=== PATIENT | female | born 1930 | race Two or more races ===

== ENCOUNTER 2018-06-25 19:28 | Inpatient (IN) | payer MEDICARE, MEDICAID ==
[~2018-06-25] VITALS: Ht 157.5 cm; Wt 71.2 kg
[2018-06-25] MEDS ORDERED: [UNRECOGNIZED DRUG - REMARK] (19:38)
[2018-06-25] MEDS ORDERED: [UNRECOGNIZED DRUG - REMARK] (19:38)
--- NOTE | 2018-06-25 19:45 | NUR ---
Pt bib rescue for the c/o flu-like symptoms, cough/phlegm x 3 weeks. Upon assessment, pt is AAO x 3 and speaking in complete sentences. No s/s of respiratory distress noted at this time. Pt placed on monitor. Safe environment implemented.
[2018-06-25] MEDS ORDERED: DEXAMETHASONE SOD PHOSPHATE 4 MG INJ IV ONE (20:00)
[2018-06-25] MEDS ORDERED: IV NORMAL SALINE 1000 ML BAG IV ONE (20:00)
[2018-06-25] MEDS ORDERED: LEVOFLOXACIN 500 MG/D5W 100ML PIGGYBACK IV ONE (20:00)
[2018-06-25] MEDS ORDERED: DEXAMETHASONE SOD PHOSPHATE 10 MG INJ ONE (20:35)
[2018-06-25] MEDS ORDERED: LEVOFLOXACIN 500 MG/D5W 100 ML ONE (20:35)
[2018-06-25 20:41] LABS: BASOPHILS % (AUTO) 0.3 % (0.0-2.0); EOSINOPHILS % (AUTO) 0.3 % (0.0-7.0); HEMATOCRIT 31.4 % (31.2-41.9); HEMOGLOBIN 10.4 g/dL (10.9-14.3); LYMPHOCYTES # (AUTO) 1.4 K/uL (20.0-40.0); LYMPHOCYTES % (AUTO) 23.6 % (20.5-51.5); MEAN CORPUSCULAR HGB CONC 33 g/dL (32.3-35.6); MEAN CORPUSCULAR VOLUME 90.3 fL (75.5-95.3); MONOCYTES # (AUTO) 1.7 K/uL (2.0-10.0); MONOCYTES % (AUTO) 28.2 % (0.0-11.0); NEUTROPHILS # (AUTO) 2.8 K/uL (1.8-8.9); NEUTROPHILS % (AUTO) 47.6 % (38.5-71.5); PLATELET COUNT (AUTO) 108 K/uL (179-408); RED BLOOD CELL COUNT(AUTO) 3.47 MIL/uL (3.63-4.92); WHITE BLOOD COUNT (AUTO) 5.9 K/uL (3.8-11.8)
[2018-06-25 20:46] LABS: CARBON DIOXIDE 28 mmol/L (21-32); CHLORIDE 105 mmol/L (98-107); CREATININE 1.1 mg/dL (0.6-1.3); GLUCOSE 112 mg/dL (74-106); POTASSIUM 4.8 mmol/L (3.5-5.1); UREA NITROGEN, BLOOD 24 mg/dL (7-18)
[2018-06-25] MEDS ORDERED: DOCUSATE SODIUM 100 MG (20:47)
[2018-06-25] MEDS ORDERED: LEVOTHYROXINE 100 MCG (20:47)
[2018-06-25] MEDS ORDERED: FERROUS SULFATE 325 MG (20:47)
[2018-06-25] MEDS ORDERED: FUROSEMIDE TAB 20MG (20:47)
[2018-06-25] MEDS ORDERED: ALPRAZOLAM TAB 0.5MG (20:47)
[2018-06-25] MEDS ORDERED: LINZESS CAP 145MCG (20:47)
[2018-06-25] MEDS ORDERED: BISACODYL 5 MG (20:47)
[2018-06-25] MEDS ORDERED: FLUOCINOLONE (20:47)
[2018-06-25] MEDS ORDERED: FLUOCINOLONE ACETONIDE 0.01% (20:47)
[2018-06-25] MEDS ORDERED: LORATADINE 10 MG (20:47)
[2018-06-25 20:54] LABS: *BILIRUBIN,URIN NEGATIVE (NEGATIVE); *BLOOD, URINE 1+ (NEGATIVE); *COLOR,URINE YELLOW (YELLOW); *KETONES,URINE NEGATIVE (NEGATIVE); *UROBILINOGEN,URINE 0.2 E.U./dl (NORMAL); LEUKOCYTE ESTERASE ,URINE 2+ (NEGATIVE); NITRITE, URINE POSITIVE (NEGATIVE); UGLUCOSE NEGATIVE (NEGATIVE)
[2018-06-25 20:58] LABS: ALANINE AMINOTRANSFERASE 22 U/L (14-59); ALKALINE PHOSPHATASE 204 U/L (50-136); ASPARTATE AMINOTRANSFERASE 15 U/L (15-37); BILIRUBIN,DIRECT 0.2 mg/dL (0.0-0.2); BILIRUBIN,TOTAL 0.5 mg/dL (0.2-1.0); TOTAL PROTEIN, SERUM 6.4 g/dL (6.4-8.2)
[2018-06-25 21:01] LABS: *CLARITY,URINE CLOUDY (CLEAR)
[2018-06-25 21:02] LABS: WBC,URINE 50-80 /HPF (0-3)
[2018-06-25 21:03] LABS: BACTERIA,URINE MANY /HPF (NONE SEEN); MUCUS,URINE MANY /LPF (0-FEW); SQUAMOUS EPITHELIAL CELL,UR FEW /HPF (NONE SEEN)
--- NOTE | 2018-06-25 21:25 | NUR ---
EPIC paged for panel call.
[2018-06-25 21:29] LABS: BAND % (MANUAL) 6 % (0-10); EOSINOPHILS % (MANUAL) 1 % (0-8); LYMPHOCYTES % (MANUAL) 22 % (20-40); METAMYELOCYTES % 1 % (0-1); MONOCYTES % (MANUAL) 25 % (2-10); NEUTROPHILS % (MANUAL) 45 % (42-75)
--- NOTE | 2018-06-25 21:40 | NUR ---
Dr. Hernandez on phone with Troy VELASQUEZ
--- NOTE | 2018-06-25 21:56 | NUR ---
Report given to receiving inpatient nurse.
--- NOTE | 2018-06-25 22:20 | NUR ---
Received patient from ER via gurney. A/O x 4. Kazakh speaking. Patient is ambulatory with assistive device. Denies pain at the moment. Placed patient on O2 2L NC. Lung sounds diminished. In no acute distress. IVF infusing on the left FA. Admission protocol followed. Skin check done, intact. No open wounds. Belongings list done. FPC assessment done. Safety initiated. Call light within reach.
--- NOTE | 2018-06-25 22:25 | NUR ---
Pt. admitted to [facility] , under care of Troy SHACTOR HELPER Dx: UTI Belongs List completed
[2018-06-25] MEDS ORDERED: LABE200T5 PO (23:09)
[2018-06-25 23:10] VITALS: BP 138/56
[2018-06-26] MEDS ORDERED: ROSU5TAB PO
[2018-06-26] MEDS ORDERED: DEXL30CA3 PO
[2018-06-26] MEDS ORDERED: LINA72CA PO (00:02)
[2018-06-26] MEDS ORDERED: HYDROCODONE/APAP 5-325MG TABLET PO PRN (02:15)
[2018-06-26] MEDS ORDERED: ZOLPIDEM 5 MG TABLET PO PRN (02:15)
[2018-06-26] MEDS ORDERED: HOME MED MISCELLANEOUS XX SCH (02:15)
[2018-06-26] MEDS ORDERED: MAGNESIUM HYDROXIDE 30 ML LIQUID UDC PO PRN (02:15)
[2018-06-26] MEDS ORDERED: ONDANSETRON 4 MG/2 ML VIAL IV PRN (02:15)
[2018-06-26] MEDS ORDERED: Z GUARD REMEDY PASTE 57 GM TUBE TOP PRN (02:15)
[2018-06-26] MEDS: IV NS 1000 ML 1,000 ML IV PRN (03:36)
--- NOTE | 2018-06-26 05:31 | NUR ---
No changes t/o shift. Patient states that she sweats alot at home during bedtime. I had to change her gown twice. IVF infusing on the right FA. Patent and intact. Vital signs stable. No temperature. Ambulates to the restroom with a walker. Good urine output. Safety and comfort measures maintained t/o shift. All meds given as ordered. All needs met.
[2018-06-26 06:00] VITALS: BP 131/42
[2018-06-26] MEDS: PANTOPRAZOLE SODIUM 40 MG TABLET.DR PO SCH (06:00)
--- NOTE | 2018-06-26 07:15 | NUR ---
RECEIVED PATIENT ON BED ASLEEP, NO ACUTE DISTRESS NOTED. IV ACCESS ON LEFT FOREARM #20 INTACT AND PATENT IV NS @ 75 CC/HR INFUSING WELL. COMFORT MEASURES PROVIDED. WILL CONTINUE TO MONITOR CLOSELY.
[2018-06-26] MEDS: LABETALOL HCL 200 MG TABLET PO SCH ×3 (08:37→17:46)
[2018-06-26 11:17] VITALS: BP 124/61
[2018-06-26] MEDS: FERROUS SULFATE 325 MG TABEC PO SCH (15:22)
[2018-06-26 15:29] VITALS: BP 124/55
[2018-06-26] MEDS: BENZONATATE 100 MG CAPSULE PO SCH ×2 (16:30→21:16)
[2018-06-26] MEDS ORDERED: LINA145C PO (17:13)
[2018-06-26] MEDS ORDERED: LORA-588 PO (17:14)
[2018-06-26] MEDS ORDERED: LEVO100T10 PO (17:14)
[2018-06-26] MEDS ORDERED: FURO-152 PO (17:15)
[2018-06-26] MEDS ORDERED: FERR325T28 PO (17:16)
[2018-06-26] MEDS ORDERED: BISA5TAB10 PO (17:16)
[2018-06-26] MEDS ORDERED: DOCU100C36 PO (17:17)
[2018-06-26] MEDS ORDERED: ALPR0.5T8 PO (17:18)
--- NOTE | 2018-06-26 18:41 | NUR ---
PATIENT IN STBALE CONDITION THROUGHOUT SHIFT. ON O2 @ 2LPM VIA NC. NON PRODUCTIVE COUGH STILL PRESENT. IV ACCESS INTACT AND PATENT IVF INFUSING WELL. ALL NEEDS ATTENDED AND ANTICIPATED. WILL ENDORSE ACCORDINGLY
--- NOTE | 2018-06-26 20:00 | NUR ---
Received patient laying comfortably in bed reading a paper. A/O x 4. Sierra Leonean speaking. Patient is ambulatory with assistive device. Denies pain at the moment but reported cough. Patient on O2 2L NC. Lung sounds diminished. In no acute distress. IVF infusing on the left FA. Safety initiated. Call light within reach.
[2018-06-26] MEDS: ATORVASTATIN 10 MG TABLET PO SCH (20:01)
[2018-06-26 20:25] VITALS: BP 112/49
[2018-06-27] MEDS: BENZONATATE 100 MG CAPSULE PO SCH ×3 (05:28→22:08)
[2018-06-27] MEDS: IV NS 1000 ML 1,000 ML IV PRN (05:28)
--- NOTE | 2018-06-27 05:55 | NUR ---
No changes t/o shift. Patient sweats alot at home during bedtime. I had to change her gown twice. IVF infusing on the left FA. Patent and intact. Patient c/o cough, medication given, stated relief. On O2 2L NC. Vital signs stable. No temperature. Ambulates to the restroom with a walker. Good urine output. Safety and comfort measures maintained t/o shift. All meds given as ordered. All needs met.
[2018-06-27 06:11] VITALS: BP 134/51
[2018-06-27] MEDS: PANTOPRAZOLE SODIUM 40 MG TABLET.DR PO SCH (06:26)
[2018-06-27 07:15] LABS: BASOPHILS % (AUTO) 0.3 % (0.0-2.0); EOSINOPHILS % (AUTO) 0.4 % (0.0-7.0); HEMATOCRIT 30.2 % (31.2-41.9); HEMOGLOBIN 10.2 g/dL (10.9-14.3); LYMPHOCYTES # (AUTO) 1.9 K/uL (20.0-40.0); LYMPHOCYTES % (AUTO) 31.3 % (20.5-51.5); MEAN CORPUSCULAR HEMOGLOBIN 30.1 uug (24.7-32.8); MEAN CORPUSCULAR HGB CONC 34 g/dL (32.3-35.6); MEAN CORPUSCULAR VOLUME 89.3 fL (75.5-95.3); MONOCYTES # (AUTO) 1.1 K/uL (2.0-10.0); MONOCYTES % (AUTO) 17.6 % (0.0-11.0); NEUTROPHILS # (AUTO) 3.1 K/uL (1.8-8.9); NEUTROPHILS % (AUTO) 50.4 % (38.5-71.5); PLATELET COUNT (AUTO) 115 K/uL (179-408); RED BLOOD CELL COUNT(AUTO) 3.39 MIL/uL (3.63-4.92); WHITE BLOOD COUNT (AUTO) 6.1 K/uL (3.8-11.8)
[2018-06-27 07:21] LABS: CARBON DIOXIDE 28 mmol/L (21-32); CHLORIDE 109 mmol/L (98-107); CHOLESTEROL 131 mg/dL (<200); CREATININE 0.9 mg/dL (0.6-1.3); GLUCOSE 92 mg/dL (74-106); HDL CHOLESTEROL 57 mg/dL (40-60); MAGNESIUM 1.5 mg/dL (1.8-2.4); PHOSPHOROUS 2.5 mg/dL (2.5-4.9); POTASSIUM 3.9 mmol/L (3.5-5.1); TRIGLYCERIDES 62 MG/DL (30-150); UREA NITROGEN, BLOOD 20 mg/dL (7-18)
[2018-06-27] MEDS ORDERED: LEVOFLOXACIN 750MG/D5W 750 MG in PREMIXED 1 EACH IV SCH (09:00)
[2018-06-27] MEDS: FERROUS SULFATE 325 MG TABEC PO SCH (09:15)
[2018-06-27] MEDS: LABETALOL HCL 200 MG TABLET PO SCH ×3 (09:20→16:18)
[2018-06-27 11:56] VITALS: BP 111/47
[2018-06-27 12:07] LABS: BAND % (MANUAL) 4 % (0-10); EOSINOPHILS % (MANUAL) 1 % (0-8); LYMPHOCYTES % (MANUAL) 30 % (20-40); METAMYELOCYTES % 2 % (0-1); MONOCYTES % (MANUAL) 18 % (2-10); MYELOCYTES % 1 % (0-0); NEUTROPHILS % (MANUAL) 44 % (42-75)
[2018-06-27] MEDS: MAGNESIUM SULFATE/D5W 100 ML IV SCH ×2 (12:09→13:19)
[2018-06-27 15:35] VITALS: BP 120/36
--- NOTE | 2018-06-27 18:49 | NUR ---
PATIENT IS SITTING UP IN BED AWAKE ALERT AND ORIENTED. BED IS IN LOW LOCKED POSITION AND CALL LIGHT IN REACH. PATIENT HAS NS RUNNING AT 75ML/HR. PATIENT IS ON 2L OF OXYGEN VIA NASAL CANNULA. NO DISTRESS NOTED. WALKER AT BEDSIDE.
--- NOTE | 2018-06-27 20:00 | NUR ---
Received patient from ER via [employer]. A/O x 4. Chadian speaking. No acute distress noted. Patient is ambulatory with assistive device. Reports pain in the right lower back. Patient on O2 2L NC. In no acute distress. IVF infusing on the left FA. Safety initiated. Call light within reach.
--- NOTE | 2018-06-27 20:15 | NUR ---
Made MD aware about 810 pain in the right lower back. New orders in place. Tylenol given for pain relief. Will closely monitor.
[2018-06-27 20:19] VITALS: BP 145/56
[2018-06-27] MEDS: ACETAMINOPHEN 325 MG TABLET PO PRN (20:54)
[2018-06-27] MEDS: ATORVASTATIN 10 MG TABLET PO SCH (20:54)
[2018-06-28] MEDS: BENZONATATE 100 MG CAPSULE PO SCH ×3 (05:10→21:46)
[2018-06-28] MEDS: IV NS 1000 ML 1,000 ML IV PRN (05:11)
--- NOTE | 2018-06-28 05:35 | NUR ---
Patient slept intermittently t/o shift. Patient c/o pain in the lower right back. Tylenol given, stated relief. Order for U.S. of both kidney scheduled today. On O2 2L NC. IVF infusing on the right FA. Patent and intact. Vital signs stable. No temperature. Ambulates to the restroom with a walker. Good urine output. Made a small BM yesterday morning. C/O constipation. Offered prune juice. Gave MOM. Safety and comfort measures maintained t/o shift. All meds given as ordered. All needs met.
[2018-06-28 05:59] VITALS: BP 134/74
[2018-06-28] MEDS: PANTOPRAZOLE SODIUM 40 MG TABLET.DR PO SCH (06:06)
[2018-06-28 08:53] LABS: CARBON DIOXIDE 30 mmol/L (21-32); CHLORIDE 109 mmol/L (98-107); GLUCOSE 97 mg/dL (74-106); POTASSIUM 4.6 mmol/L (3.5-5.1); UREA NITROGEN, BLOOD 18 mg/dL (7-18)
[2018-06-28] MEDS: ACETAMINOPHEN 325 MG TABLET PO PRN ×2 (09:15→21:47)
[2018-06-28] MEDS: FERROUS SULFATE 325 MG TABEC PO SCH (09:15)
[2018-06-28] MEDS: LABETALOL HCL 200 MG TABLET PO SCH ×4 (09:17→21:46)
[2018-06-28 11:30] VITALS: BP 125/53
[2018-06-28] MEDS ORDERED: FUROSEMIDE 20 MG/2 ML VIAL IV ONE (12:45)
[2018-06-28 16:08] VITALS: BP 149/48
[2018-06-28] MEDS ORDERED: SWABABLE VALVE TRANSFER SET EA MC ONE (16:21)
[2018-06-28] MEDS ORDERED: NORMAL SALINE FLUSH 10 ML DISP.SYRIN ONE (16:21)
[2018-06-28] MEDS ORDERED: IOHEXOL 350 100 ML INFUS..BTL ONE (16:22)
[2018-06-28] MEDS ORDERED: IV NORMAL SALINE 250 ML IV ONE (16:22)
--- NOTE | 2018-06-28 17:00 | NUR ---
EVA DELEON ORDERED STAT CT OF THE CHEST FOR DISSECTION. PATIENT TRANSFERRED FOR PROCEDURE. PATIENT DENIES ANY CHEST PAIN. NO DISTRESS NOTED.
--- NOTE | 2018-06-28 17:20 | NUR ---
PATIENT IS BACK FROM PROCEDURE, DR BATES CONTACTED SON DANIEL TO INFORM ABOUT MOTHER'S CONDITION AND GATHER MORE HISTORY.
--- NOTE | 2018-06-28 17:54 | NUR ---
DR. BATES SPOKE TO PATIENT AND WILL CHANGE SOME MEDICATION ADMINISTRATION TIMES. HELD LABETOLOL 5PM DOSE.
--- NOTE | 2018-06-28 18:00 | NUR ---
PATIENT TRANSFERRED TO ICU.
--- NOTE | 2018-06-28 18:56 | NUR ---
PATIENT TRANSFERRED BACK OUT OF THE ICU TO [facility]. PATIENT STABLE. NO DISTRESS NOTED. Addendum: 06/28/18 at 1857 by DB HUSSEIN RN PER
--- NOTE | 2018-06-28 19:03 | NUR ---
PATIENT IS LYING IN BED AWAKE ALERT AND ORIENTED. PATIENT IS ON 2L OF OXYGEN VIA NASAL CANNULA, NO DISTRESS NOTED. PATIENT DENIES ANY PAIN AT THE MOMENT. NO CHEST PAIN OR ABNORMAL FEELINGS. DR BATES IS IN CONTACT WITH DR OGDFREY ABOUT POSITIVE FINDINGS FROM CT STUDY ABOUT AORTIC DISSECTION. PER DR BATES PATIENT IS OKAY TO REMAIN ON [facility] WITH CLOSE MONITORING.
--- NOTE | 2018-06-28 19:53 | NUR ---
Received patient quiet in bed reading newspaper, awake alert & oriented, no SOB denies chest pain. On O2 2L/NC O2Sat 96%. Vital signs WNL, sinus louis on the monitor.
[2018-06-28 20:00] VITALS: BP 134/54
[2018-06-28] MEDS: ATORVASTATIN 10 MG TABLET PO SCH (21:46)
[2018-06-29] VITALS: BP 119/40
[2018-06-29 04:00] VITALS: BP 135/76
[2018-06-29] MEDS ORDERED: LEVOFLOXACIN 500 MG TABLET PO ONE (06:00)
--- NOTE | 2018-06-29 06:00 | NUR ---
No significant change, garcia to gravity w/ moderate output. No sign of bleeding noted. Vital signs WNL. Addendum: 06/29/18 at 0702 by DENIS SEARS RN Disregard above notes. Wrong entry/patient.
[2018-06-29] MEDS: BENZONATATE 100 MG CAPSULE PO SCH ×3 (06:02→21:23)
[2018-06-29] MEDS: PANTOPRAZOLE SODIUM 40 MG TABLET.DR PO SCH (06:02)
[2018-06-29 06:31] LABS: BASOPHILS % (AUTO) 0.6 % (0.0-2.0); EOSINOPHILS % (AUTO) 0.9 % (0.0-7.0); HEMATOCRIT 33.2 % (31.2-41.9); HEMOGLOBIN 11.2 g/dL (10.9-14.3); LYMPHOCYTES # (AUTO) 1.6 K/uL (20.0-40.0); LYMPHOCYTES % (AUTO) 38.3 % (20.5-51.5); MEAN CORPUSCULAR HGB CONC 34 g/dL (32.3-35.6); MEAN CORPUSCULAR VOLUME 89.2 fL (75.5-95.3); MONOCYTES # (AUTO) 0.9 K/uL (2.0-10.0); MONOCYTES % (AUTO) 20.9 % (0.0-11.0); NEUTROPHILS # (AUTO) 1.6 K/uL (1.8-8.9); NEUTROPHILS % (AUTO) 39.3 % (38.5-71.5); PLATELET COUNT (AUTO) 116 K/uL (179-408); RED BLOOD CELL COUNT(AUTO) 3.72 MIL/uL (3.63-4.92); WHITE BLOOD COUNT (AUTO) 4.1 K/uL (3.8-11.8)
[2018-06-29 06:45] LABS: CARBON DIOXIDE 31 mmol/L (21-32); CHLORIDE 105 mmol/L (98-107); CREATININE 0.9 mg/dL (0.6-1.3); GLUCOSE 79 mg/dL (74-106); MAGNESIUM 1.9 mg/dL (1.8-2.4); PHOSPHOROUS 3.1 mg/dL (2.5-4.9); POTASSIUM 3.6 mmol/L (3.5-5.1); UREA NITROGEN, BLOOD 15 mg/dL (7-18)
[2018-06-29 07:26] VITALS: BP 140/53
[2018-06-29 07:32] LABS: EOSINOPHILS % (MANUAL) 2 % (0-8); LYMPHOCYTES % (MANUAL) 33 % (20-40); MONOCYTES % (MANUAL) 23 % (2-10); NEUTROPHILS % (MANUAL) 42 % (42-75)
--- NOTE | 2018-06-29 08:00 | NUR ---
Discussed plan of care with patient re: notifying RN for any chest discomfort, fall precaution, and any SOB. Noted no bounding on epigastric area. Pt denies any c/o pain. Pt agreeable with plan of care. PT alert and oriented x 4. Call light is within reach. SNR on TELE.
[2018-06-29] MEDS: FERROUS SULFATE 325 MG TABEC PO SCH (08:03)
[2018-06-29] MEDS: AMLODIPINE 5 MG TABLET PO SCH (08:03)
[2018-06-29] MEDS: LABETALOL HCL 200 MG TABLET PO SCH ×2 (08:03→21:00)
[2018-06-29] MEDS: ACETAMINOPHEN 325 MG TABLET PO PRN (08:04)
[2018-06-29 11:45] VITALS: BP 108/50
[2018-06-29 15:43] VITALS: BP 109/44
--- NOTE | 2018-06-29 18:35 | NUR ---
Pt was down graded to TELE. Pt is in no acute distress. Plan of care effective. Pt has no fall and denies any c/o pain. Call light is within reach.
[2018-06-29 20:00] VITALS: BP 111/38
[2018-06-29] MEDS: ATORVASTATIN 10 MG TABLET PO SCH (21:23)
[2018-06-30] VITALS: BP 133/52
[2018-06-30 04:00] VITALS: BP 131/65
[2018-06-30] MEDS ORDERED: LEVOFLOXACIN 250 MG TABLET PO SCH (06:00)
[2018-06-30] MEDS: BENZONATATE 100 MG CAPSULE PO SCH ×2 (06:30→13:06)
[2018-06-30] MEDS: PANTOPRAZOLE SODIUM 40 MG TABLET.DR PO SCH (06:31)
--- NOTE | 2018-06-30 06:59 | NUR ---
PATIENT SLEPT MOST OF THE NIGHT NO SOB NO CHEST PAIN, TELE MONITOR SINUS RHYTHM WITH NO EPISODES OF BRADYCARDIA AT THIS TIME, NO COMPLAIN OF PAIN NOR DISCOMFORT CONT TO MONITOR.
--- NOTE | 2018-06-30 07:00 | NUR ---
Patient A/O 3, Discussed plan of care,no chest discomfort, fall precaution reinforced, no SOB. Noted no bounding on epigastric area. Call light is within reach. SNR on TELE
[2018-06-30] MEDS: LABETALOL HCL 200 MG TABLET PO SCH (09:10)
[2018-06-30] MEDS: AMLODIPINE 5 MG TABLET PO SCH (09:11)
[2018-06-30] MEDS: FERROUS SULFATE 325 MG TABEC PO SCH (09:11)
[2018-06-30 09:15] VITALS: BP 124/54
[2018-06-30] MEDS ORDERED: Levofloxacin PO (10:58)
[2018-06-30] MEDS ORDERED: ALPR0.5T8 PO (10:58)
[2018-06-30] MEDS ORDERED: AMLO5TAB9 PO (10:58)
[2018-06-30] MEDS ORDERED: LABE200T8 PO (10:58)
[2018-06-30] MEDS ORDERED: HYDROCORTISONE 0.5% CREAM 28.35 GM TUBE TOP PRN ×2 (11:00→11:15)
[2018-06-30 11:26] VITALS: BP 119/41
[2018-06-30 13:55] VITALS: BP 116/58
[2018-06-30 15:00] VITALS: BP 103/49
--- NOTE | 2018-06-30 15:09 | NUR ---
Patient A/O 3, no chest discomfort, fall precaution reinforced, no SOB. VS WNL, patient is stable , discharge instructions given with hard copy. Patient left home with Brother, prep manager took patient downstairs by wheelchair.
== END 2018-06-30 15:09 | disposition home health service (06) | DRG 291 ==
LOC: ER 19:29 → MED 22:00 → TELE 06-28 16:42 → CCU 06-28 18:00 → TELE-TD 06-28 18:47 → TELE 06-29 16:05
PROVIDERS: ADMIT Nurse Practitioner Acute Care; ATTEND Nurse Practitioner Acute Care
DX: I11.0 Hypertensive heart disease with heart failure (principal); N17.0 Acute kidney failure with tubular necrosis; I71.01 Dissection of thoracic aorta; G93.41 Metabolic encephalopathy; N39.0 Urinary tract infection, site not specified; E44.1 Mild protein-calorie malnutrition; J98.11 Atelectasis; J90 Pleural effusion, not elsewhere classified; N13.6 Pyonephrosis; I50.33 Acute on chronic diastolic (congestive) heart failure; B96.1 Klebsiella pneumoniae [K. pneumoniae] as the cause of diseases classified elsewhere; D63.8 Anemia in other chronic diseases classified elsewhere; D69.6 Thrombocytopenia, unspecified; E78.5 Hyperlipidemia, unspecified; E03.9 Hypothyroidism, unspecified; E83.42 Hypomagnesemia; K21.9 Gastro-esophageal reflux disease without esophagitis; E88.09 Other disorders of plasma-protein metabolism, not elsewhere classified; Z68.28 Body mass index [BMI] 28.0-28.9, adult; I35.1 Nonrheumatic aortic (valve) insufficiency; I71.2 Thoracic aortic aneurysm, without rupture
CPT/HCPCS: 36415; 70030-TC; 71045; 74018; 76770; 83605; 83735; 84100; 85025; 85730; 87040; 87077; 87086; 87400; 93005; 93307; A4663; G0378; J1100; J1940; J1956; J3475; J3490; J7030; J7050; Q9967

== ENCOUNTER 2018-09-05 12:33 | Emergency (ER) | payer MEDICARE, MEDICAID ==
[~2018-09-05] VITALS: Ht 160 cm; Wt 65.8 kg
[~2018-09-05 12:33] MED LIST: ALPR0.5T8 PO; AMLO5TAB9 PO; BISA5TAB10 PO; DEXL30CA3 PO; DOCU100C36 PO; FERR325T28 PO; FLUOCINOLONE; FLUOCINOLONE ACETONIDE 0.01%; LABE200T8 PO; LEVO100T10 PO; LINA145C PO; LORA-588 PO; Levofloxacin PO; ROSU5TAB PO
--- NOTE | 2018-09-05 12:59 | NUR ---
TASIA A 87 Y/O FEMALE PT C/O L.BACK AND L. ABDOMINAL PAIN. PT UPON ARRIVAL V/S TAKEN. PT IS TANZANIAN SPEAKING, HAS SON AT BEDSIDE TO TRANSLATE. AWAITING TO BE SEEN BY
[2018-09-05] MEDS ORDERED: [UNRECOGNIZED DRUG - OTHER] (13:03)
[2018-09-05] MEDS ORDERED: AMLO10TA4 PO (13:03)
[2018-09-05] MEDS ORDERED: TERA2CAP4 PO (13:03)
[2018-09-05] MEDS ORDERED: [UNRECOGNIZED DRUG - OTHER] (13:04)
[2018-09-05] MEDS ORDERED: HYDROCODONE/APAP 10-325 MG TABLET ONE (13:27)
[2018-09-05] MEDS ORDERED: HYDROCODONE/APAP 10-325 MG TABLET PO ONE (13:30)
[2018-09-05 14:37] LABS: *BILIRUBIN,URIN NEGATIVE (NEGATIVE); *BLOOD, URINE 1+ (NEGATIVE); *CLARITY,URINE CLEAR (CLEAR); *COLOR,URINE YELLOW (YELLOW); *KETONES,URINE NEGATIVE (NEGATIVE); *UROBILINOGEN,URINE 0.2 E.U./dl (NORMAL); LEUKOCYTE ESTERASE ,URINE NEGATIVE (NEGATIVE); NITRITE, URINE NEGATIVE (NEGATIVE); PH,URINE 5.5 (5.0-8.0); UGLUCOSE NEGATIVE (NEGATIVE)
[2018-09-05 14:46] LABS: MUCUS,URINE FEW /LPF (0-FEW); SQUAMOUS EPITHELIAL CELL,UR MODERATE /HPF (NONE SEEN); WBC,URINE 0-3 /HPF (0-3)
--- NOTE | 2018-09-05 15:16 | NUR ---
Patient discharged to home in stable conditon. Written and verbal after care instructions given. PRESCRIPTION GIVEN, Patient verbalizes understanding of instructions. CD COPY OF IMAGES GIVEN TO PT
== END 2018-09-05 15:19 | disposition home or self-care (01) ==
LOC: ER 12:33
DX: M54.5 Low back pain (principal); Z90.49 Acquired absence of other specified parts of digestive tract; Z88.0 Allergy status to penicillin; Z88.5 Allergy status to narcotic agent; Z88.8 Allergy status to other drugs, medicaments and biological substances; Z79.899 Other long term (current) drug therapy
CPT/HCPCS: 72100; A4663